=== PATIENT | male | born 1990 | race Caucasian/White ===

== ENCOUNTER 2019-11-08 09:58 | Emergency (ER) | payer OTHER ==
[2019-11-08 10:36] VITALS: BP 142/70; PULSE 79; RESP 18; TEMP 97.9
[2019-11-08] MEDS ORDERED: LIDOCAINE 1%-EPI 1:100,000 20 ML VIAL SQ STA (11:48)
--- NOTE | 2019-11-08 12:19 | ED ---
General Adult HPI - General Chief complaint: Skin/Abscess/Foreign Body Stated complaint: bump on arm Time Seen by Provider: 11/08/19 10:45 Source: patient Mode of arrival: ambulatory Limitations: no limitations - History of Present Illness Initial comments: Dictation was produced using [employer] dictation software. please excuse any grammatical, word or spelling errors. Chief Complaint: 29-year-old male with a bump on left elbow History of Present Illness: Patient is to a 9-year-old male presents with bump on left elbow. Patient states he's had this bump for approximately one month it intermittently with increase in size and decrease in size. The last 24 hours she noted that it was more painful and red. Patient has a history of IV drug abuse. States that it does feel slightly itchy. Denies any constitutional symptoms. His concern that he has an abscess. The ROS documented in this emergency department record has been reviewed and confirmed by me. Those systems with pertinent positive or negative responses have been documented in the HPI. All other systems are other negative and/or noncontributory. PHYSICAL EXAM: General Impression: Alert and oriented x3, not in acute distress HEENT: Normocephalic atraumatic, extra-ocular movements intact, pupils equal and reactive to light bilaterally, mucous membranes moist. Cardiovascular: Heart regular rate and rhythm, S1&S2 audible, no murmurs, rubs or gallops Chest: Lungs clear to auscultation bilaterally, no rhonchi, no wheeze, no rales Abdomen: Bowel sounds present, abdomen soft, non-tender, non-distended, no organomegaly Musculoskeletal: Pulses present and equal in all extremities, no peripheral edema Motor: no focal deficits noted Neurological: CN II-XII grossly intact, no focal motor or sensory deficits noted Skin: 2 x 2 centimeter left medial elbow wound with positive fluctuance and covering erythema. Psych: Normal affect and mood ED course: 59-year-old male with clinical presentation consistent with subcutaneous abscess. Point of care bedside ultrasound was performed confirming abscess formation. No evidence of mycotic aneurysm. No nearby blood vessels. Vital signs upon arrival are within acceptable limits. I&D performed at bedside. Wound was packed with quarter-inch packing. Patient tolerated procedure well. Patient given prescription for clindamycin. Still to follow-up with Dr. Bhesnia for outpatient management of abscess. - Related Data Previous Rx's Medication Instructions Recorded Clindamycin HCl [Cleocin] 300 mg PO Q6H 5 Days #20 cap 11/08/19 Allergies Allergy/AdvReac Type Severity Reaction Status Date / Time Sulfa (Sulfonamide Allergy Unknown Verified 11/08/19 11:05 Antibiotics) Childhood sulfamethoxazole Allergy Unknown Verified 11/08/19 11:05 [From Bactrim] Childhood trimethoprim [From Bactrim] Allergy Unknown Verified 11/08/19 11:05 Childhood Review of Systems ROS Statement: Those systems with pertinent positive or pertinent negative responses have been documented in the HPI. ROS Other: All systems not noted in ROS Statement are negative. Past Medical History Past Medical History: No Reported History History of Any Multi-Drug Resistant Organisms: None Reported Past Surgical History: Appendectomy Past Psychological History: No Psychological Hx Reported Smoking Status: Current every day smoker Past Alcohol Use History: None Reported Past Drug Use History: Marijuana General Exam Limitations: no limitations Course Vital Signs 11/08/19 10:31 Temperature 97.9 F Pulse Rate 79 Respiratory 18 Rate Blood Pressure 142/70 O2 Sat by Pulse 98 Oximetry Procedures - Incision & Drainage Consent Obtained: verbal consent Site: upper extremity (left) Anesthetic Used: lidocaine 1%, with epi Amount (mLs): 2 I&D Cleaning Method: Alcohol Wipe Sterile Field Used?: No Scalpel Used: #15 Needle Aspiration Performed?: Yes (purulent fluid) Irrigation Performed?: Yes I&D Drainage Obtained: Pus Packing: Iodoform (1/4 inch packing) Culture Obtained?: No Patient Tolerated Procedure: well Disposition Clinical Impression: Abscess Disposition: HOME SELF-CARE Condition: Good Instructions (If sedation given, give patient instructions): Abscess Incision and Drainage (ED) Additional Instructions: Today you had drainage of subcutaneous abscess. Please follow-up with Dr. Perla for outpatient management of symptoms. Seek medical attention with worsening pain, redness. Take antibiotics as prescribed. Prescriptions: Clindamycin HCl [Cleocin] 300 mg PO Q6H 5 Days #20 cap Is patient prescribed a controlled substance at d/c from ED?: No Referrals: Navneet Perla MD [STAFF PHYSICIAN] - 1-2 days Time of Disposition: 12:19
== END 2019-11-08 12:26 | disposition home or self-care (01) ==
LOC: EC 09:58
DX: L02.414 Cutaneous abscess of left upper limb (principal); F17.200 Nicotine dependence, unspecified, uncomplicated; Z88.2 Allergy status to sulfonamides; Z88.1 Allergy status to other antibiotic agents
CPT/HCPCS: 10160; 99283

== ENCOUNTER 2019-11-11 08:22 | Emergency (ER) | payer OTHER ==
[2019-11-11] MEDS ORDERED: KETOROLAC 60 MG/2 ML VIAL IM STA (08:55)
--- NOTE | 2019-11-11 09:15 | XR ---
EXAMINATION TYPE: XR elbow complete LT DATE OF EXAM: 11/11/2019 COMPARISON: NONE HISTORY: 29-year-old male abscess, pain TECHNIQUE: 3 views FINDINGS: Some reticulations within the subcutaneous adipose layer medial aspect of the elbow with so me foci of soft tissue air. No underlying elbow joint effusion. No acute fracture, subluxation, or di slocation. No periostitis or osteolysis. IMPRESSION: Medial sided soft tissue swelling and a couple foci of soft tissue air corresponds to soft tissue inf ection. No underlying acute osseous abnormality seen.
--- NOTE | 2019-11-11 09:20 | ED ---
Skin/Abscess/FB HPI - General Chief complaint: Skin/Abscess/Foreign Body Stated complaint: recheck - abscess lt arm Time Seen by Provider: 11/11/19 08:27 Source: patient Mode of arrival: ambulatory Limitations: no limitations - History of Present Illness Initial comments: 29-year-old male presenting today for chief complaint of abscess on the left arm. Patient states she had an abscess drained approximately 3 days ago he states that he was unable to get appointment with general surgery until November 14. Patient states he was unsure if this was a feasible amount of time. He states that he does have pain in the area that has been persistent since the drainage that seems to be slightly increase he states however the redness that was surrounding the abscess has significantly improved. Patient states that there has been some drainage on the packing, patient denies any fever or general malaise swelling of the joint. Patient denies any other complaints. States he has been complaint with his clindamycin. Patient has no removed any packing. remaining ROS (-). Patient states made him come to get rechecked in ER just to be sure everything looked ok. - Related Data Previous Rx's Medication Instructions Recorded Clindamycin HCl [Cleocin] 300 mg PO Q6H 5 Days #20 cap 11/08/19 Allergies Allergy/AdvReac Type Severity Reaction Status Date / Time Sulfa (Sulfonamide Allergy Unknown Verified 11/11/19 08:26 Antibiotics) Childhood sulfamethoxazole Allergy Unknown Verified 11/11/19 08:26 [From Bactrim] Childhood trimethoprim [From Bactrim] Allergy Unknown Verified 11/11/19 08:26 Childhood Review of Systems ROS Statement: Those systems with pertinent positive or pertinent negative responses have been documented in the HPI. ROS Other: All systems not noted in ROS Statement are negative. Past Medical History Past Medical History: No Reported History History of Any Multi-Drug Resistant Organisms: None Reported Past Surgical History: Appendectomy Past Psychological History: No Psychological Hx Reported Smoking Status: Current every day smoker Past Alcohol Use History: None Reported Past Drug Use History: Marijuana General Exam - General Exam Comments Initial Comments: General: The patient is awake and alert, in no distress, and does not appear acutely ill. Eye: +3 mm pupils are equal, round and reactive to light, extra-ocular movements are intact. No nystagmus. There is normal conjunctiva bilaterally. No signs of icterus. Cardiovascular: There is a regular rate and rhythm. No murmur, rub or gallop is appreciated. Respiratory: Lungs are clear to auscultation, respirations are non-labored, breath sounds are equal. No wheezes, stridor, rales, or rhonchi. Musculoskeletal: Normal ROM at elbows b/l pain with ROM at the left elbow in area of abscess. Strength 5/5. Sensation intact. Pulses equal bilaterally 2+. Neurological: A&O x 3. CN II-XII intact grossly, There are no obvious motor or sensory deficits. Coordination appears grossly intact. Speech is normal. Skin: Skin is warm and dry and no rashes. 3x2.5cm area of induration, no rednesss, central opening with packing mild amount of purulent drainage on packing, no purulent drainage can be expressed from actual incision site, only serosanguineous. There is no surrounding cellulitis. Tender to touch. Psychiatric: Cooperative, appropriate mood & affect, normal judgment. Limitations: no limitations Course Vital Signs 11/11/19 08:24 Temperature 97.3 F L Pulse Rate 67 Respiratory 20 Rate Blood Pressure 126/82 O2 Sat by Pulse 96 Oximetry Medical Decision Making - Medical Decision Making Nontoxic-appearing 29-year-old male. Presenting for recheck of abscess. Appointment Gen. surgery on November 14. Patient is no erythema I states this has been improving patient had the area packed I removed packing examined the area and no purulent drainage was expressed there is a mild amount of purulent on the existing packing. Small amount of serosanguineous fluid. Wound cultures were obtained. XR revealed air in area of the I&D/abscess otherwise no other subcuntaneous gas suspicious for gas forming bacteria. Patient will be continued on clindamycin, Patient evaluated by Dr. Matamoros who recommends XR, culture, repacking and discharge. Patient agreeable to care plan and discharge at this time. Disposition Clinical Impression: Abscess, Encounter for wound re-check Disposition: HOME SELF-CARE Condition: Good Instructions (If sedation given, give patient instructions): Abscess Incision and Drainage (DC) Additional Instructions: Please use medication as discussed. Please follow-up with family doctor in the next 2 days, and Dr. Perla on Thursday as scheduled. Please return to emergency room if the symptoms increase or worsen or for any other concerns. Is patient prescribed a controlled substance at d/c from ED?: No Referrals: None,Stated [Primary Care Provider] - 1-2 days Navneet Perla MD [STAFF PHYSICIAN] - 1-2 days Time of Disposition: 09:22
[2019-11-11 09:32] VITALS: BP 130/85; PULSE 70; RESP 16; TEMP 97.2
== END 2019-11-11 09:29 | disposition home or self-care (01) ==
LOC: EC 08:22
DX: Z48.01 Encounter for change or removal of surgical wound dressing (principal); L02.414 Cutaneous abscess of left upper limb; F17.200 Nicotine dependence, unspecified, uncomplicated; Z88.1 Allergy status to other antibiotic agents; Z88.2 Allergy status to sulfonamides
CPT/HCPCS: 87070; 87205; 73080; 99283; 96372; J1885

== ENCOUNTER 2022-08-12 12:00 | Emergency (ER) | payer OTHER ==
[2022-08-12 12:16] VITALS: TEMP 98
[2022-08-12] MEDS ORDERED: IBUPROFEN 400 MG TAB PO STA (12:44)
--- NOTE | 2022-08-12 13:03 | ED ---
General Adult HPI - General Chief complaint: Urogenital Stated complaint: abd pain Time Seen by Provider: 08/12/22 12:22 Source: patient Mode of arrival: ambulatory Limitations: no limitations - History of Present Illness Initial comments: This patient is a 32-year-old man who presents with a constellation of symptoms that he noticed coming on yesterday as he was waking up. The patient states that he wasn't feeling right. He was having some diffuse body aches. Throughout the course of the day he was having nonproductive cough. He felt like he was warm but he did not note a temperature when he measured it. Patient also had a couple of episodes of dry heaves yesterday. This morning the patient stated that the body aches seemed to be improving however he noticed that pain continued and seemed to be localized in the bilateral groin area. He has not noted a change in urination. Patient also denies change in bowel movements. Further history reveals patient does not believe there is risk of STI. She states she has not had any sexual activity for approximately 2 weeks and he is in long-term monogamous relationship. No rash. No urethral discharge. No katey testicular pain. Onset/Timin -: days(s) Consistency: constant Improves with: none Worsens with: none Associated Symptoms: nausea/vomiting Treatments Prior to Arrival: none - Related Data Home Medications Medication Instructions Recorded Confirmed No Known Home Medications 08/12/22 08/12/22 Allergies Allergy/AdvReac Type Severity Reaction Status Date / Time Sulfa (Sulfonamide Allergy Unknown Verified 08/12/22 13:38 Antibiotics) Childhood sulfamethoxazole Allergy Unknown Verified 08/12/22 13:38 [From Bactrim] Childhood trimethoprim [From Bactrim] Allergy Unknown Verified 08/12/22 13:38 Childhood Review of Systems ROS Statement: Those systems with pertinent positive or pertinent negative responses have been documented in the HPI. ROS Other: All systems not noted in ROS Statement are negative. Constitutional: Reports: fever (Subjective) Respiratory: Reports: cough. Denies: dyspnea, hemoptysis Cardiovascular: Denies: chest pain, palpitations, edema Gastrointestinal: Reports: vomiting. Denies: abdominal pain, nausea, diarrhea, constipation, melena, hematochezia Genitourinary: Denies: dysuria, frequency, discharge, testicular pain Musculoskeletal: Denies: back pain Skin: Denies: rash Neurological: Denies: headache, weakness Past Medical History Past Medical History: No Reported History History of Any Multi-Drug Resistant Organisms: None Reported Past Surgical History: Appendectomy Past Psychological History: No Psychological Hx Reported Past Alcohol Use History: None Reported Past Drug Use History: Marijuana General Exam Limitations: no limitations General appearance: alert, in no apparent distress Head exam: Present: atraumatic, normocephalic Eye exam: Present: normal appearance. Absent: scleral icterus, conjunctival injection Neck exam: Present: normal inspection Respiratory exam: Present: normal lung sounds bilaterally. Absent: respiratory distress, wheezes, rales, rhonchi, stridor Cardiovascular Exam: Present: regular rate, normal rhythm, normal heart sounds. Absent: systolic murmur, diastolic murmur, rubs, gallop GI/Abdominal exam: Present: soft. Absent: distended, tenderness, guarding, rebound, rigid, mass exam: Present: normal inspection, vertical testicular lie, circumcision, oth er (There is no testicular tenderness. There is right inguinal node tenderness. No erythema, warmth.). Absent: testicular tenderness, urethral discharge, scrotal swelling Extremities exam: Present: normal inspection, normal capillary refill. Absent: pedal edema, calf tenderness Back exam: Present: normal inspection. Absent: CVA tenderness (R), CVA tenderness (L) Neurological exam: Present: alert Skin exam: Present: warm, dry, intact, normal color. Absent: rash Course Vital Signs 08/12/22 12:13 Temperature 98 F Pulse Rate 96 Respiratory 16 Rate Blood Pressure 127/83 O2 Sat by Pulse 96 Oximetry Medical Decision Making - Lab Data Lab Results 08/12/22 08/12/22 Range/Units 13:09 13:09 Urine Color Yellow Urine Appearance Cloudy (Clear) Urine pH 6.0 (5.0-8.0) Ur Specific [place] 1.044 H (1.001-1.035) Urine Protein 2+ H (Negative) Urine Glucose (UA) Negative (Negative) Urine Ketones Trace H (Negative) Urine Blood Trace H (Negative) Urine Nitrite Negative (Negative) Urine Bilirubin Negative (Negative) Urine Urobilinogen 3.0 (<2.0) mg/dL Ur Leukocyte Esterase Negative (Negative) Urine RBC 30 H (0-5) /hpf Urine WBC 2 (0-5) /hpf Urine Mucus Many H (None) /hpf Coronavirus (PCR) Not Detected (Not Detectd) Disposition Clinical Impression: Inguinal lymphadenopathy, Viral syndrome, Hematuria Disposition: HOME SELF-CARE Condition: Good Instructions (If sedation given, give patient instructions): Hematuria (ED), Viral Syndrome (ED) Is patient prescribed a controlled substance at d/c from ED?: No Referrals: Garrett Penny MD [STAFF PHYSICIAN] - 1-2 days
[2022-08-12 13:59] LABS: Appearance,Urine Cloudy (Clear); Bilirubin,Urine Negative (Negative); Blood,Urine Trace (Negative); Color,Urine Yellow; Glucose,Urine (UA) Negative (Negative); Ketones,Urine Trace (Negative); Leukocyte Esterase,Urine Negative (Negative); Mucus,Urine Many /hpf; Nitrite,Urine Negative (Negative); Protein,Urine 2+ (Negative); RBC,Urine 30 /hpf (0-5); Specific Gravity,Urine 1.044 (1.001-1.035); WBC,Urine 2 /hpf (0-5)
--- NOTE | 2022-08-12 15:11 | CT ---
EXAMINATION TYPE: CT abdomen pelvis wo con DATE OF EXAM: 08/12/2022 HISTORY: Right inguinal pain and microscopic hematuria. CT DLP: 534.8 mGycm. Automated Exposure Control for Dose Reduction was Utilized. TECHNIQUE: CT scan of the abdomen and pelvis is performed without oral or IV contrast. COMPARISON: NONE FINDINGS: Within the limitations of a non-contrast study, the following observations are made. LUNG BASES: Focal groundglass opacity posterior left lung base axial image 21 could reflect atelectas is or developing infiltrate. LIVER/GB: Gallbladder has distended margins with increased internal density suggesting possible sludg e. No surrounding fat stranding or fluid noted PANCREAS: No significant abnormality is seen. SPLEEN: Small splenule in the splenic hilum are seen.. ADRENALS: No significant abnormality is seen. KIDNEYS: Hyperdense renal pyramids centrally. There are 2-3 in number, 1 to 2 mm nonobstructing right renal calculi for reference coronal image 58 mid to lower pole level. No hydronephrosis or obstructi ng ureteral calculi clearly seen bilaterally. Scattered pelvic phleboliths right greater than left. N o intraluminal calculus and bladder clearly seen. BOWEL: No significant abnormality is seen. GENITAL ORGANS: Prostate gland normal in size with central calcification axial image 127. LYMPH NODES: No greater than 1cm abdominal or pelvic lymph nodes are appreciated. OSSEOUS STRUCTURES: No significant abnormality is seen. OTHER: No significant additional abnormality is seen. 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 Tiny nonobstructing right renal calculi. No hydronephrosis or obstructing ureteral calculi clearly seen.
[2022-08-12 15:35] VITALS: BP 134/86; PULSE 72; RESP 18
[2022-08-13 13:01] LABS: C. trachomatis,PCR Negative (Neg,Equiv); Chlamydia trachomatis Source Urine; N. gonorrhoeae,PCR Negative (Neg,Equiv); Neisseria Source Urine
== END 2022-08-12 15:34 | disposition home or self-care (01) ==
LOC: EC 12:00
DX: R59.1 Generalized enlarged lymph nodes (principal); B34.9 Viral infection, unspecified; R31.9 Hematuria, unspecified; F12.90 Cannabis use, unspecified, uncomplicated; Z88.2 Allergy status to sulfonamides
CPT/HCPCS: 74176; 81001; 87491; 87591; 87635; 99284

== ENCOUNTER 2023-11-17 11:17 | Emergency (ER) | payer OTHER ==
--- NOTE | 2023-11-17 11:39 | ED ---
Back Pain HPI - General Chief Complaint: Back Pain/Injury Stated Complaint: L Back/Leg Pain Time Seen by Provider: 11/17/23 11:21 Source: patient, family, EMS, RN notes reviewed Mode of arrival: EMS Limitations: no limitations - History of Present Illness Initial Comments: This is a 33-year-old male who presents to the emergency department for lower back pain. Patient was moving and throwing concrete at work, when about 20 minutes prior to arrival he developed sudden and severe pain in the left lower back. Pain is starting to radiate down the left leg. Denies any loss of bowel/bladder control or saddle anesthesia. Patient states any movement whatsoever is exacerbating his pain. He took 400 mg of ibuprofen prior to arrival with no relief in symptoms. MD Complaint: back pain - Related Data Previous Rx's Medication Instructions Recorded Ibuprofen [Motrin] 800 mg PO Q8H PRN #30 tab 11/17/23 Lidocaine 5% Patch [Lidoderm 5% 1 patch TOPICAL DAILY PRN #30 patch 11/17/23 Patch] methocarbamoL [Robaxin-750] 1,500 mg PO TID PRN #30 tab 11/17/23 Allergies Allergy/AdvReac Type Severity Reaction Status Date / Time Sulfa (Sulfonamide Allergy Unknown Verified 11/17/23 13:56 Antibiotics) Childhood sulfamethoxazole Allergy Unknown Verified 11/17/23 13:56 [From Bactrim] Childhood trimethoprim [From Bactrim] Allergy Unknown Verified 11/17/23 13:56 Childhood Review of Systems ROS Statement: Those systems with pertinent positive or pertinent negative responses have been documented in the HPI. ROS Other: All systems not noted in ROS Statement are negative. Past Medical History Past Medical History: No Reported History History of Any Multi-Drug Resistant Organisms: None Reported Past Surgical History: Appendectomy Past Psychological History: No Psychological Hx Reported Smoking Status: Never smoker Past Alcohol Use History: None Reported Past Drug Use History: Marijuana General Exam Limitations: no limitations General appearance: alert, in distress Head exam: Present: atraumatic, normocephalic, normal inspection Respiratory exam: Present: normal lung sounds bilaterally. Absent: respiratory distress, wheezes, rales, rhonchi, stridor Cardiovascular Exam: Present: regular rate, normal rhythm, normal heart sounds. Absent: systolic murmur, diastolic murmur, rubs, gallop, clicks Back exam: Present: tenderness (Left lower back) Neurological exam: Present: alert, oriented X3, CN II-XII intact Psychiatric exam: Present: normal affect, normal mood Skin exam: Present: warm, dry, intact, normal color. Absent: rash Course Vital Signs 11/17/23 11/17/23 11:28 15:44 Temperature 97.8 F 97.9 F Pulse Rate 106 H 80 Respiratory 20 16 Rate Blood Pressure 104/84 132/75 O2 Sat by Pulse 96 98 Oximetry Medical Decision Making - Medical Decision Making This is a 33-year-old male who presents to the emergency department for back pain. Was pt. sent in by a medical professional or institution? @ -No Did you speak to anyone other than the patient for history? @ -No Did you review nursing and triage notes? @ -Yes, and I agree, it is accurate with regards to the patient's symptoms. Were old charts reviewed? @ -No Differential Diagnosis? @ -Differential Back Pain: Strain, zoster, cauda equina syndrome, epidural abscess, vertebral osteomyelitis, discitis, fracture, subluxation, disc herniation, DJD, spinal stenosis, dissection, AAA, pancreatitis, peptic ulcer disease, pyelonephritis, kidney stone, this is not meant to be an all-inclusive list. EKG interpreted by me (3pts min.)? @ -Not obtained X-rays interpreted by me (1pt min.)? @ -X-ray of the lumbar spine and sacrum/coccyx obtained. My interpretation identifies no acute fractures. CT interpreted by me (1pt min.)? @ -Not obtained U/S interpreted by me (1pt. min.)? @ -Not obtained What testing was considered but not performed? (CT, X-rays, U/S, labs)? Why? @ -None What meds were considered but not given? Why? @ -None Did you discuss the management of the patient with other professionals? @ -No Did you reconcile home meds? @ -No Was smoking cessation discussed for >3mins.? @ -I discussed smoking cessation for greater than 3 minutes. The risk of smoking were discussed with the patient including but not limited to risks of cancer, stroke, coronary artery disease and COPD. Also discussed with patient were multiple methods of quitting smoking. Lastly we discussed the financial cost of smoking. Was critical care preformed (if so, how long)? @ -No Were there social determinants of health that impacted care today? How? (Homelessness, low income, unemployed, alcoholism, drug addiction, transportation, low edu. Level, literacy, decrease access to med. care, retirement, rehab)? @ -No Was there de-escalation of care discussed even if they declined? (Discuss DNR or withdrawal of care, Hospice)? @ -No What co-morbidities impacted this encounter? (DM, HTN, Smoking, COPD, CAD, Cancer, CVA, Hep., AIDS, mental health diagnosis, sleep apnea, morbid obesity)? @ -Smoking Was patient admitted / discharged? @ -Discharged. X-ray of the lumbar spine and sacrum/coccyx obtained demonstrating no acute process. Advised the patient that this is likely a muscular strain. Symptoms controlled in the emergency department. Rx for Ibuprofen, lidocaine patches, and Robaxin provided with dosing instructions reviewed. Patient discharged home in stable condition. Undiagnosed new problem with uncertain prognosis? @ -None Drug Therapy requiring intensive monitoring for toxicity (Heparin, Nitro, Insulin, Cardizem)? @ -None Were any procedures done? @ -None Diagnosis/symptom? @ -Lumbar strain Acute, or Chronic, or Acute on Chronic? @ -Acute Uncomplicated (without systemic symptoms) or Complicated (systemic symptoms)? @ -Uncomplicated Side effects of treatment? @ -None Exacerbation, Progression, or Severe Exacerbation] @ -Not applicable Poses a threat to life or bodily function? @ -The pain may limit his ability to function for the mean time. Return precautions reviewed in depth, the patient is instructed to return to the emergency department with any new, worsening, or concerning symptoms. Patient verbalized understanding. This case was discussed in detail with the attending ED physician, Dr. Groves. Presentation, findings, and treatment plan discussed in detail as well. - Radiology Data Radiology results: report reviewed, image reviewed Disposition Clinical Impression: Nicotine dependence, Strain of lumbar region Disposition: HOME SELF-CARE Instructions (If sedation given, give patient instructions): Low Back Strain (ED), Acute Low Back Pain (ED) Additional Instructions: Return to the emergency department with any new, worsening, or concerning symptoms. Alternate with ibuprofen and Tylenol as needed for pain relief. You can apply the lidocaine patches daily. Take the Robaxin as 1 to 2 tablets up to 3-4 times daily. Be aware that this may make you drowsy. Follow up with your primary care provider in 1-2 days. Prescriptions: Lidocaine 5% Patch [Lidoderm 5% Patch] 1 patch TOPICAL DAILY PRN #30 patch PRN Reason: Pain Ibuprofen [Motrin] 800 mg PO Q8H PRN #30 tab PRN Reason: Pain methocarbamoL [Robaxin-750] 1,500 mg PO TID PRN #30 tab PRN Reason: Pain Is patient prescribed a controlled substance at d/c from ED?: No Referrals: None,Stated [Primary Care Provider] - 1-2 days
[2023-11-17] MEDS: KETOROLAC 15 MG/ML 1 ML VIAL IVP STA ×2 (11:41→13:58)
[2023-11-17] MEDS: ORPHENADRINE 30 MG/ML 2 ML VIAL IVP STA (11:42)
[2023-11-17] MEDS: LIDOCAINE 4% PATCH TOPICAL ONE (11:45)
--- NOTE | 2023-11-17 12:32 | XR ---
3 view lumbar spine and sacrum and coccyx. DATE: 11/17/2023. COMPARISON: None available. CLINICAL HISTORY: Pain after lifting. FINDINGS: The vertebral bodies are well aligned without evidence of fracture, subluxation or dislocation. The vertebral body heights and disc spaces are maintained. The SI joints are within normal limits. IMPRESSION: No acute osseous abnormalities. No significant degenerative changes.
[2023-11-17] MEDS: DEXAMETHASONE SOD PHOSPHATE 10 MG/ML 1 ML VIAL IVP STA (12:56)
[2023-11-17] MEDS: MAGNESIUM SULFATE-D5W PMX 1 GM in DEXTROSE/WATER 1 100ML.BAG IVPB ONE (12:58)
[2023-11-17] MEDS: ACETAMINOPHEN TAB 500 MG TAB PO STA (13:02)
[2023-11-17] MEDS: MORPHINE SULFATE 4 MG/ML SYRINGE IVP STA (14:00)
[2023-11-17] MEDS: HYDROmorphone 1 MG/ML 1 ML SYRINGE IVP STA (15:14)
[2023-11-17] MEDS: traMADol 50 MG STARTER PACK 3 TAB BTL PO STA (15:16)
[2023-11-17 16:06] VITALS: BP 132/75; PULSE 80; RESP 16; TEMP 97.9
== END 2023-11-17 15:45 | disposition home or self-care (01) ==
LOC: EC 11:17
DX: S39.012A Strain of muscle, fascia and tendon of lower back, initial encounter (principal); F17.210 Nicotine dependence, cigarettes, uncomplicated; F12.90 Cannabis use, unspecified, uncomplicated; Z88.1 Allergy status to other antibiotic agents; Z88.2 Allergy status to sulfonamides; Z90.49 Acquired absence of other specified parts of digestive tract; X50.9XXA Other and unspecified overexertion or strenuous movements or postures, initial encounter; Y99.0 Civilian activity done for income or pay
CPT/HCPCS: 72100; 72220; 99406; 99284; 96365; 96375 ×5; 96376; J2270; J1100; J2360; J1170; J3475; J1885

== ENCOUNTER 2023-11-19 12:28 | Emergency (ER) | payer OTHER ==
[2023-11-19] MEDS: HYDROmorphone 0.5 MG/0.5 ML SYRINGE IM STA (13:23)
--- NOTE | 2023-11-19 14:00 | CT ---
EXAMINATION TYPE: CT lumbar spine wo con DATE OF EXAM: 11/19/2023 1:43 PM COMPARISON: None available. HISTORY: BACK PAIN CT DLP: 580.9 mGycm Automated exposure control for dose reduction was used. Unenhanced CT of the lumbar spine was performed. Bone and soft tissue window settings are submitted as well as coronal and sagittal reconstructions. FINDINGS: The vertebral bodies are well aligned without evidence of fracture, subluxation or dislocation. The vertebral body heights and disc spaces are maintained. No definitive disc protrusions or areas of neural foramina stenosis are seen, however this is limited and would be better evaluated by CT. IMPRESSION: No definitive acute osseous abnormalities or degenerative changes are seen. These findings could pote ntially be better evaluated by MRI if desired.
--- NOTE | 2023-11-19 15:03 | ED ---
Back Pain HPI - General Chief Complaint: Back Pain/Injury Stated Complaint: Back Pain Time Seen by Provider: 11/19/23 13:40 Source: patient, RN notes reviewed, old records reviewed Mode of arrival: ambulatory Limitations: no limitations - History of Present Illness Initial Comments: Patient is a 33-year-old male presented to ER with chief complaint of back pain. Patient states he was moving cinderblocks and felt a pop in his back. Patient seen here on 11-17-2023 and discharged with lidocaine patches, ibuprofen and Robaxin. He states the past couple of days the pain has not improved and he is now having difficulty walking with radiating pain down his left leg. He states he has been having to use a cane to ambulate. He has been taking over-the-co unter Tylenol and Motrin without relief of pain. Denies any saddle paresthesias, bowel or bladder incontinence, fevers, history of IV drug use. - Related Data Previous Rx's Medication Instructions Recorded Ibuprofen [Motrin] 800 mg PO Q8H PRN #30 tab 11/17/23 Lidocaine 5% Patch [Lidoderm 5% 1 patch TOPICAL DAILY PRN #30 patch 11/17/23 Patch] methocarbamoL [Robaxin-750] 1,500 mg PO TID PRN #30 tab 11/17/23 predniSONE 50 mg PO DAILY #5 tab 11/19/23 Allergies Allergy/AdvReac Type Severity Reaction Status Date / Time Sulfa (Sulfonamide Allergy Unknown Verified 11/19/23 12:32 Antibiotics) Childhood sulfamethoxazole Allergy Unknown Verified 11/19/23 12:32 [From Bactrim] Childhood trimethoprim [From Bactrim] Allergy Unknown Verified 11/19/23 12:32 Childhood Review of Systems ROS Statement: Those systems with pertinent positive or pertinent negative responses have been documented in the HPI. ROS Other: All systems not noted in ROS Statement are negative. Past Medical History Past Medical History: No Reported History History of Any Multi-Drug Resistant Organisms: None Reported Past Surgical History: Appendectomy Past Psychological History: No Psychological Hx Reported Smoking Status: Never smoker Past Alcohol Use History: None Reported Past Drug Use History: Marijuana General Exam Limitations: no limitations General appearance: alert, in no apparent distress Head exam: Present: atraumatic, normocephalic, normal inspection Respiratory exam: Present: normal lung sounds bilaterally. Absent: respiratory distress, wheezes, rales, rhonchi, stridor Cardiovascular Exam: Present: regular rate, normal rhythm, normal heart sounds. Absent: systolic murmur, diastolic murmur, rubs, gallop, clicks Extremities exam: Present: normal inspection, full ROM, normal capillary refill. Absent: tenderness, pedal edema, joint swelling, calf tenderness Back exam: Present: tenderness (Lumbar spine and pelvic girdle), other (Difficulty going from sitting to standing due to pain. No weakness.) Neurological exam: Present: alert, oriented X3, CN II-XII intact Psychiatric exam: Present: normal affect, normal mood Course Vital Signs 11/19/23 11/19/23 12:29 15:31 Temperature 97.5 F L 98.8 F Pulse Rate 85 62 Respiratory 18 22 Rate Blood Pressure 145/76 136/84 O2 Sat by Pulse 96 99 Oximetry Medical Decision Making - Medical Decision Making Was pt. sent in by a medical professional or institution (, PA, [employer], urgent care, hospital, or fdc...) When possible be specific @ -No Did you speak to anyone other than the patient for history (EMS, parent, family, police, friend...)? What history was obtained from this source @ -No Did you review nursing and triage notes (agree or disagree)? Why? @ -I reviewed and agree with nursing and triage notes Were old charts reviewed (outside hosp., previous admission, EMS record, old EKG, old radiological studies, urgent care reports/EKG's, fdc records)? Report findings @ -Yes, ER visit from 11-17-2023. Patient discharged with lidocaine patches, ibuprofen and Robaxin. I viewed x-rays of lumbar spine which are negative for acute process. Differential Diagnosis (chest pain, altered mental status, abdominal pain women, abdominal pain men, vaginal bleeding, weakness, fever, dyspnea, syncope, h eadache, dizziness, GI bleed, back pain, seizure, CVA, palpatations, mental health, musculoskeletal)? @ -Differential Back Pain:Strain, zoster, cauda equina syndrome, epidural abscess, vertebral osteomyelitis, discitis, fracture, subluxation, disc herniation, DJD, spinal stenosis, dissection, AAA, pancreatitis, peptic ulcer disease, pyelonephritis, kidney stone, this is not meant to be an all-inclusive list. EKG interpreted by me (3pts min.). @ -None X-rays interpreted by me (1pt min.). @ -None done CT interpreted by me (1pt min.). @ -CT lumbar spine negative for acute process. U/S interpreted by me (1pt. min.). @ -None done What testing was considered but not performed or refused? (CT, X-rays, U/S, labs)? Why? @ -None What meds were considered but not given or refused? Why? @ -None Did you discuss the management of the patient with other professionals (professionals i.e. , PA, [employer], lab, RT, psych nurse, marriage and family social worker, ad writer, teacher, weapons electrical engineering officer, vocational case manager)? Give summary @ -No Was smoking cessation discussed for >3mins.? @ -No Was critical care preformed (if so, how long)? @ -No Were there social determinants of health that impacted care today? How? (Homelessness, low income, unemployed, alcoholism, drug addiction, transportation, low edu. Level, literacy, decrease access to med. care, [facility], rehab)? @ -No Was there de-escalation of care discussed even if they declined (Discuss DNR or withdrawal of care, Hospice)? DNR status @ -No What co-morbidities impacted this encounter? (DM, HTN, Smoking, COPD, CAD, Cancer, CVA, ARF, Chemo, Hep., AIDS, mental health diagnosis, sleep apnea, morbid obesity)? @ -None Was patient admitted / discharged? Hospital course, mention meds given and route, prescriptions, significant lab abnormalities, going to OR and other pertinent info. @ -Discharge. Patient is a 33-year-old male presented to the ER with a chief complaint of back pain. History and physical exam completed. Vitals stable. Patient in no signs of acute distress. No red flag back pain symptoms indicative of cauda equina syndrome. Patient was tender to lumbar spine and left pelvic girdle. Patient ambulating with a cane and having difficulty moving from chair to standing position due to pain. Patient received IM Dilaudid and Norflex for pain control, with mild improvement. CT lumbar spine negative for acute process. Results discussed with patient, all questions answered. Patient prescribed prednisone. Return parameters discussed. Patient will be discharged stable condition with follow-up to orthopedics. Referrral given. Patient ex pressed understanding and agreement with care plan. Case discussed with ED attending, Dr. Arriaga. Undiagnosed new problem with uncertain prognosis? @ -No Drug Therapy requiring intensive monitoring for toxicity (Heparin, Nitro, Insulin, Cardizem)? @ -No Were any procedures done? @ -No Diagnosis/symptom? @ -Back pain/muscle spasm Acute, or Chronic, or Acute on Chronic? @ -Acute Uncomplicated (without systemic symptoms) or Complicated (systemic symptoms)? @ -Uncomplicated Side effects of treatment? @ -No Exacerbation, Progression, or Severe Exacerbation? @ -No Poses a threat to life or bodily function? How? (Chest pain, [place], [place], pneumonia, PE, COPD, DKA, ARF, appy, cholecystitis, CVA, Diverticulitis, Homicidal, Suicidal, threat to staff... and all critical care pts) @ -No - Radiology Data Radiology results: report reviewed, image reviewed Disposition Clinical Impression: Mechanical back pain Disposition: HOME SELF-CARE Condition: Stable Instructions (If sedation given, give patient instructions): Acute Low Back Pain (ED) Additional Instructions: Please follow-up with orthopedics. Return to the ER for any new or worsening symptoms. Prescriptions: predniSONE 50 mg PO DAILY #5 tab Is patient prescribed a controlled substance at d/c from ED?: No Referrals: None,Stated [Primary Care Provider] - 1-2 days Thang Menjivar MD [Medical Doctor] - 1-2 days Time of Disposition: 15:03
[2023-11-19] MEDS: ORPHENADRINE 30 MG/ML 2 ML VIAL IM STA (15:20)
[2023-11-19 15:47] VITALS: BP 136/84; PULSE 62; RESP 22; TEMP 98.8
== END 2023-11-19 15:36 | disposition home or self-care (01) ==
LOC: EC 12:28
DX: M54.9 Dorsalgia, unspecified (principal); F12.90 Cannabis use, unspecified, uncomplicated; Z88.2 Allergy status to sulfonamides; Z88.1 Allergy status to other antibiotic agents
CPT/HCPCS: 72131; 99284; 96372 ×2; J2360; J1170